=== PATIENT | male | born 1950 | race Caucasian/White ===

== ENCOUNTER 2024-06-19 11:26 | Outpatient (REF) | payer MEDICARE, SELFPAY ==
--- OUTSIDE RECORDS SUMMARY | 2024-06-19 11:39 | XMS_ITS | Continuity of Care Document ---
Author Organization [facility] Address [address] [place] [address] [address] [place] [address]- Care Team Providers Care Correctional Officer Name Role Phone Netta HAYDEN, Lalo Garcia Primary Care Physician Encounter [facility] Date(s): 05/16/24 - 06/15/[address] [place] [address]- Encounter Type: Triage Allergies, Adverse Reactions, Alerts Substance Criticality Severity Reaction Reaction Severity Status codeine Active aspirin Active morphine Unknown Active Immunizations Given and Recorded Vaccine Date Status Refusal Reason influenza virus vaccine, inactivated 05/04/24 Give n influenza virus vaccine, inactivated 04/09/23 Ren rded influenza virus vaccine, inactivated 04/06/22 Ren rded influenza virus vaccine, inactivated 04/04/21 Ren rded influenza virus vaccine, inactivated 02/28/18 Ren rded influenza virus vaccine, inactivated 02/11/17 Ren rded influenza virus vaccine, inactivated 04/24/16 Ren rded SARS-CoV-2(COVID-19)mRNA-LNP vac([id number]) 02/22/24 Recorded SARS-CoV-2(COVID-19)mRNA-LNP vac([id number]) 09/16/23 Recorded SARS-CoV-2(COVID-19)mRNA-LNP vac([id number]) 03/26/23 Recorded pneumococcal 20-valent conjugate vaccine 07/26/23 Given RSV vaccine preF3, recombinant 03/03/23 Recorded [id number] 12y+ bivalent booster vax 5/5/23 Recorded [id number] 12y+ bivalent booster vax 03/09/22 Recorded SARS-CoV-2 mRNA ([id number]) vax 09/26/21 Recorded SARS-CoV-2 (COVID-19) mRNA BNT-162b2 vac 03/17/21 Recorded SARS-CoV-2 (COVID-19) mRNA BNT-162b2 vac 08/31/20 Recorded SARS-CoV-2 (COVID-19) mRNA BNT-162b2 vac 08/10/20 Recorded Influenza Virus Vaccine (oldterm) 03/21/20 Recorde d Influenza Virus Vaccine (oldterm) 05/04/19 Recorde d zoster vaccine, inactivated 03/08/18 Recorded tetanus/diphtheria/pertussis, acel(Tdap) 08/20/16 Recorded pneumococcal 23-valent vaccine 08/07/16 Recorded pneumococcal 13-valent vaccine 11/01/14 Recorded Medications Accu-Chek Compact Lancets See Instructions, # 100 each, Refills 3, Tot. Refills 3, Maintenance, lancets for accucheck guide, 05/14/23 8:32:00 AM EST, ICD10:E11.9, Supply, 180, cm, 04/13/23 10:43:00 EDT, Height Start Date: 05/14/23 Status: Ordered Quantity: 100.0 Unit: each Repeat number: 4 Accu-Chek Multiclix Drum Lancets See Instructions, # 100 each, Refills 3, Tot. Refills 3, Maintenance, test blood sugar once daily, 02/07/20 5:24:00 PM EDT, Supply, 180, cm, 06/26/19 9:54:00 EST, Height Start Date: 02/07/20 Status: Ordered Quantity: 100.0 Unit: each Repeat number: 4 accucheck Guide glucometer accucheck Guide glucometer, See Instructions, # 1 each, Refills 0, Tot. Refills 0, Maintenance, test blood sugar as directed ICD 10:E11.9, 05/14/23 8:31:00 AM EST, Supply, 180, cm, 04/13/23 10:43:00 EDT, Height Start Date: 05/14/23 Status: Ordered Quantity: 1.0 Unit: each Repeat number: 1 accucheck guide glucose strips accucheck guide glucose strips, See Instructions, # 100 each, Refills 3, Tot. Refills 3, Maintenance, Please test sugar once daily, 07/26/23 10:00:00 AM EST, Supply, 180, cm, 07/26/23 9:27:00 EST, Height Start Date: 07/26/23 Status: Ordered Quantity: 100.0 Unit: each Repeat number: 4 albuterol CFC free 90 mcg/inh inhalation aerosol 2, puffs, Inhalation, Every 4 hours, PRN, # 3 each, Refills 3, Tot. Refills 3, Maintenance, :41:00 PM EDT, Route to Pharmacy Electronically, [id number], [facility]/pharmacy #[id number], 180, cm, 06/26/19 9:54:00 EST, Height Start Date: 03/13/20 Status: Ordered Quantity: 3.0 Unit: each Repeat number: 4 Arnuity Ellipta 200 mcg inhalation powder 1 puffs = 200 mcg, Inhalation, Every 24 hours, rinse mouth and throat after use, # 30 each, 0 Refills, Maintenance, 02/07/24 6:27:00 PM EDT, Powder, [facility]/pharmacy #[id number], Partial fill upon patient request if the prescription is for a schedule II opioid drug., 178, cm, 12/05/23 10:28:00 EDT, Height, 82.9, kg, 12/05/23 10:28:00 EDT, Dry Weight Start Date: 02/07/24 Status: Ordered Quantity: 30.0 Unit: each Repeat number: 1 atorvastatin 80 mg oral tablet 1 tablet = 80 mg, By Mouth, Daily, # 90 tablet, 3 Refills, Maintenance, 10/28/23 10:56:00 AM EDT, Tablet, Partial fill upon patient request if the prescription is for a schedule II opioid drug. Start Date: 10/28/23 Status: Ordered Quantity: 90.0 Unit: tablet Repeat number: 4 Colace Capsule 100 mg, 1, capsule, By Mouth, 2 times a day, PRN, Refills 0, Maintenance, as needed for constipation, 03/08/24 11:30:00 AM EDT, Partial fill upon patient request if the prescription is for a schedule II opioid drug. Start Date: 03/08/24 Status: Ordered Repeat number: 1 diclofenac 1% topical gel = 2 Gm, Topically, 4 times a day, PRN Pain , Moderate, To painful areas of hands and wrists, # 100 Gm, 2 Refills, Maintenance, 04/13/24 6:07:00 PM EDT, Gel, [facility]/pharmacy #[id number], Partial fill upon patient request if the prescription is for a schedule II opioid drug., 178, cm, 04/13/24 15:01:00 EDT, Height, 82.6, kg, 03/28/24 19:10:00 EDT, Dry Weight Start Date: 04/13/24 Status: Ordered Quantity: 100.0 Unit: g Repeat number: 3 fluticasone 50 mcg/inh nasal spray See Instructions, SPRAY 2 SPRAYS INTO EACH NOSTRIL EVERY DAY, # 48 mL, 1 Refills, Maintenance, 03/27/23 6:31:00 PM EDT, [id number], 90, SPRAY 2 SPRAYS INTO EACH NOSTRIL EVERY DAY, 180, cm, 01/07/23 13:56:00 EDT, Height Start Date: 03/27/23 Status: Ordered Quantity: 48.0 Unit: mL Repeat number: 1 glipiZIDE 5 mg oral tablet, extended release 0.5 tablet = 2.5 mg, By Mouth, Daily, 0 Refills, Maintenance, 06/15/24 9:18:00 AM EST, Partial fillupon patient request if the prescription is for a schedule II opioid drug. Start Date: 06/15/24 Status: Ordered Repeat number: 1 Golytely - oral powder for reconstitution See Instructions, split prep, drink half after 5pm evening before procedure, finish remaining half 6 hours prior to procedure time, # 4,000 mL, 0 Refills, Maintenance, 06/09/24 2:06:00 PM EST, [facility]pharmacy [facility][id number], Partial fill upon patient request if the prescription is for a schedule II opioid drug., split prep, drink half after 5pm evening before procedure, finish remaining half 6 hours prior toprocedure time, 178, cm, 05/04/24 12:03:00 EST, Height, 82.6, kg, 03/28/24 19:10:00 EDT, Dry Weight Start Date: 06/09/24 Status: Ordered Quantity: 4000.0 Unit: mL Repeat number: 1 levothyroxine 0.05 mg oral tablet 1 tablet, By Mouth, Daily, # 90 tablet, 1 Refills, Maintenance, 03/26/24 10:36:00 AM EDT, [id number], 178, cm, 03/08/24 12:14:00 EDT, Height, 82, kg, 03/07/24 17:00:00 EDT, Dry Weight Start Date: 03/26/24 Status: Ordered Quantity: 90.0 Unit: tablet Repeat number: 1 lisinopril 10 mg oral tablet 10 mg, 1, tablet, By Mouth, Daily, new dose /will call, # 30 tablet, Refills 1, Tot. Refills 1, Maintenance, 05/04/24 12:29:00 PM EST, Route to Pharmacy Electronically, [facility]/pharmacy #[id number], Partial fill upon patient request if the prescription is for a schedule II opioid drug., 178, cm, 05/04/24 12:03:00 EST, Height, 82.6, kg, 03/28/24 19:10:00 EDT, Dry Weight Start Date: 05/04/24 Status: Ordered Quantity: 30.0 Unit: tablet Repeat number: 2 metFORMIN 500 mg oral tablet 2 tablet = 1,000 mg, By Mouth, Daily at supper, # 180 each, 3 Refills, Maintenance, 05/30/24 4:00:00 PM EST, Partial fill upon patient request if the prescription is for a schedule II opioid drug. Start Date: 05/30/24 Status: Ordered Quantity: 180.0 Unit: each Repeat number: 4 omeprazole 20 mg oral enteric coated capsule 1 capsule, By Mouth, Daily, # 90 capsule, 1 Refills, Maintenance, 04/10/24 3:03:00 PM EDT, [id number], 178, cm, 03/29/24 14:50:00 EDT, Height, 82.6, kg, 03/28/24 19:10:00 EDT, Dry Weight Start Date: 04/10/24 Status: Ordered Quantity: 90.0 Unit: capsule Repeat number: 1 sertraline 50 mg oral tablet 1 tablet = 50 mg, By Mouth, Daily, # 30 tablet, 0 Refills, Maintenance, 10/28/23 10:26:00 AM EDT, Tablet, Partial fill upon patient request if the prescription is for a schedule II opioid drug. Start Date: 10/28/23 Status: Ordered Quantity: 30.0 Unit: tablet Repeat number: 1 Problem List Condition Confirmation Course Effective Dates Status Health Status Informant Asthma Confirmed Active Amin esophagus Confirmed Active CKD (chronic kidney disease), stage III Confirmed Active Diabetes mellitus Confirmed Active Dyspnea Confirmed Active Edema Confirmed Active Exposure to COVID-19 virus Confirmed Active GERD (gastroesophageal reflux disease) Confirmed Active Trochanteric bursitis, left hip Confirmed Active Hip pain Confirmed Active Hypercholesterolemia Confirmed Active Hypertensive disorder Confirmed Active Hypothyroidism Confirmed Active Major depression Confirmed Active Metabolic acidosis Confirmed Active Osteoarthritis of knee Confirmed Active Colon polyps Confirmed Active Social History Social History Type Response Smoking Status Former smoker, quit more than 30 days ago; Other: quit mid 1969; entered on: 08/07/20 Sex Sex Representation Male (finding) Patient Care team information Care Team Personnel Name: Netta HAYDEN, Lalo Garcia Position: [facility] Physician - Primary Care Member Role: PCP Address: [address] [place] [address] Telecom: Name: Vanessa West RN Position: S RN Member Role: Primary Care Nurse Name: Agustin Fabian RN Position: [facility] RN Member Role: Primary Care Nurse Name: Sameera Alex RN Position: [facility] RN Member Role: Primary Care Nurse Care Team Related Persons Name: KRYSTLE SHIRLEY Name: MIGUEL SHIRLEY Insurance Providers Guarantor name: [employer] [facility] Health [facility] Information #: 1 Payer: MEDICARE PART B OUTPT Member Number: NA Policy Number: NA Group Number: NA Health Plan Information #: 2 Payer: [facility] Member Number: NA Policy Number: NA Group Number: NA
[2024-06-19 14:30] LABS: MANUAL DIFF FLAG NO
[2024-06-19 14:38] LABS: Basophils Absolute Auto 0.1 X10*3/uL (0.0-0.2); Basophils Percent Auto 0.9 % (0-2); Eosinophils Absolute Auto 0.4 X10*3/uL (0.0-0.4); Eosinophils Percent Auto 6.2 % (0-4); Hematocrit 36.6 % (42.0-52.0); Hemoglobin 12.7 g/dl (14.0-18.0); Imm Gran Abs Auto 0.02 X10*3/uL (0.00-0.03); Imm Gran Pct Auto 0.3 % (0.0-0.4); Lymphocytes Absolute Auto 1.4 X10*3/uL (1.2-4.9); Lymphocytes Percent Auto 19.9 % (20-40); Mean Corpuscular HGB Conc 34.7 g/dl (31.0-36.0); Mean Corpuscular Hemoglobin 30.1 pg (27.0-33.0); Mean Corpuscular Volume 86.7 fL (80.0-98.0); Mean Platelet Volume 10.1 fL (9.4-12.4); Monocytes Absolute Auto 0.6 X10*3/uL (0.1-1.2); Neutrophils Absolute Auto 4.5 x10*3/uL (2.0-8.3); Neutrophils Percent Auto 64.7 % (45-73); Platelet Count 185 X10*3/uL (160-400); Red Blood Count 4.22 X10*6/uL (4.60-5.80); Red Cell Distribution Width 13.9 % (11.0-16.0)
[2024-06-19 14:47] LABS: Anion Gap 11 (12-20); Blood Urea Nitrogen 26 mg/dL (9-16); Carbon Dioxide 23 mmol/L (22-29); Chloride 109 mmol/L (96-108); Estimated Glomerular Filt Rate > 60; Glucose Random 186 mg/dL (60-115); Potassium 4.4 mmol/L (3.3-5.1); Sodium 139 mmol/L (135-145)
== END 2024-06-19 11:27 | disposition home or self-care (01) ==
LOC: HO.WFDLDS 11:26
PROVIDERS: Visit Provider Internal Medicine
DX: E03.9 Hypothyroidism, unspecified (principal); E11.9 Type 2 diabetes mellitus without complications; I10 Essential (primary) hypertension
CPT/HCPCS: 36415; 80048; 85025